=== PATIENT | male | born 1950 | race Caucasian/White ===

== ENCOUNTER → 2020-11-01 09:39 | Outpatient (CLI) | payer MEDICARE, SELFPAY ==
[2020-10-01 10:05] VITALS: BMI 30.2
--- NOTE | 2020-11-01 09:42 | ECHOD_ITS ---
Reason For Study: AV Replacement Procedure This was a 2D Doppler, Color Flow transthoracic echocardiogram. The study was technically difficult. Exam performed in department. Left Ventricle Normal LV size. Left ventricular systolic function is normal. The estimated ejection fraction is 55 %. Post operative septal motion. There is evidence of diastolic dysfunction. No regional wall motion abnormalities noted. Right Ventricle Normal RV size. Normal systolic function. Atria The left atrium is mildly enlarged. The right atrium is mildly enlarged. Aneurysmal atrial septum. Mitral Valve There is no mitral annular calcification. Mild mitral valve prolapse, posterior leaflet. Mild (1+) mitral valve insufficiency. Tricuspid Valve Normal tricuspid valve. Mild tricuspid valve insufficiency. Right ventricular systolic pressure estimated to be 30 mmHg. Aortic Valve Stable appearing mechanical aortic valve apparatus. Trivial transvalvular insufficiency of the aortic valve. Pulmonic Valve The pulmonic valve is not well visualized. Moderate (2+) pulmonic valve insufficiency. Great Vessels Normal sized aortic root. Pericardium/Pleural No pericardial effusion. MMode/2D Measurements & Calculations LVIDd: 4.4 cm IVSd: 1.3 cm LVOT diam: 2.0 cm LVIDs: 2.9 cm LVPWd: 1.2 cm LVOT area: 3.2 cm2 RVDd: 3.8 cm FS: 34.0 % Ao root diam: 3.2 cm LAV(MOD-bp): 92.9 ml LVAd ap4: 26.4 cm2 LAV(MOD-bp) Indexed: 39.9 ml/m2 EDV(MOD-sp4): 66.1 ml LAV(MOD-sp2): 85.6 ml EDV(sp4-el): 67.4 ml LAV(MOD-sp4): 96.6 ml LVAs ap4: 17.1 cm2 ESV(MOD-sp4): 33.6 ml ESV(sp4-el): 34.5 ml EF(MOD-sp4): 49.2 % EF(sp4-el): 48.8 % SV(MOD-sp4): 32.5 ml SV(sp4-el): 32.9 ml LA A4 area: 27.5 cm2 LA dimension(2D): 5.5 cm RA A4 area: 19.2 cm2 Doppler Measurements & Calculations MV E max manpreet: 53.6 cm/sec Lat Peak E' Manpreet: 13.8 cm/sec Med Peak E' Manpreet: 3.7 cm/sec MV A max manpreet: 62.6 cm/sec E/E' lat: 3.9 E/E' med: 14.5 MV E/A: 0.86 Ao V2 max: 187.8 cm/sec LV V1 max: 135.4 cm/sec SV(LVOT): 87.6 ml Ao max P.2 mmHg LV V1 max P.3 mmHg Ao V2 mean: 124.8 cm/sec LV V1 mean P.6 mmHg Ao mean P.3 mmHg LV V1 mean: 88.4 cm/sec Ao V2 VTI: 35.0 cm LV V1 VTI: 27.0 cm WENDI(I,D): 2.5 cm2 WENDI(V,D): 2.3 cm2 PA V2 max: 174.2 cm/sec TR max manpreet: 260.1 cm/sec TR max P.2 mmHg Interpretation Summary The study was technically difficult. Left ventricular systolic function is normal. The estimated ejection fraction is 55 %. Post operative septal motion. The left atrium is mildly enlarged. The right atrium is mildly enlarged. Aneurysmal atrial septum. Mild mitral valve prolapse, posterior leaflet Mild (1+) mitral valve insufficiency. Mild tricuspid valve insufficiency. Stable appearing mechanical aortic valve apparatus. Trivial transvalvular insufficiency of the aortic valve. Moderate (2+) pulmonic valve insufficiency. Right ventricular systolic pressure estimated to be 30 mmHg. There is evidence of diastolic dysfunction. Ordering Physician: Dayton Hernandez Referring Physician: Torito Clark Performed By: Ashley Andres RDCS
== END ==
PROVIDERS: PCP Family Medicine; Referring Provider Internal Medicine Cardiovascular Disease; Visit Provider Internal Medicine Cardiovascular Disease
DX: I25.10 Atherosclerotic heart disease of native coronary artery without angina pectoris (principal); I71.4 Abdominal aortic aneurysm, without rupture; I10 Essential (primary) hypertension; Q87.40 Marfan syndrome, unspecified; I48.0 Paroxysmal atrial fibrillation; Z79.01 Long term (current) use of anticoagulants; Z95.2 Presence of prosthetic heart valve; Z98.890 Other specified postprocedural states; Z86.79 Personal history of other diseases of the circulatory system
CPT/HCPCS: 93306

== ENCOUNTER → 2021-04-25 08:49 | Outpatient (CLI) | payer MEDICARE, SELFPAY ==
[2021-04-11 09:58] VITALS: BMI 30.2
--- NOTE | 2021-04-25 08:56 | AAVD_ITS ---
Reason For Study: AAA Aorta Measurements Aorta Doppler Measurements Proximal aorta measures3.18 x 3.36cm. in cross- Peak systolic flow velocities within the proximal sectional axis. aorta measure 92.6 cm/sec. Proximal aorta measures3.0cm. in longitudinal Peak systolic flow velocities within the mid aorta axis. measure 108 cm/sec. Mid aorta measures2.0 x 2.46cm. in cross-sectionalPeak systolic flow velocities within the distal axis. aorta measure 83.8 cm/sec. Mid aorta measures1.91cm. in longitudinal axis. Distal aorta measures1.62 x 1.64cm. in cross- sectional axis. Distal aorta measures1.59cm. in longitudinal axis. Left Iliac Artery Left iliac artery measures .92 x 1.09 cm. in the cross-sectional axis. Left iliac artery measures 1.04 cm. in the longitudinal axis. Peak systolic velocity in the left iliac artery measures 94.8 cm/sec. Right Iliac Artery Right iliac artery measures 1.04 x 1.26 cm. in the cross-sectional axis. Right iliac artery measures 1.08 cm. in the longitudinal axis. Peak systolic velocity in the right iliac artery measures 86.0 cm/sec. Procedure Aorta IVC Iliac vasculature or bypass grafts [id number]. The exam was diagnostic. Exam performed in department. VL/Abd Aortic/IVC Duplex scan Interpretation Summary 3.36 cm aortic aneurysm. No evidence of aortic iliac stenosis. Ordering Physician: Dayton Hernandez Performed By: Abdulkadir Mcmanus RVT
== END ==
PROVIDERS: PCP Family Medicine; Referring Provider Internal Medicine Cardiovascular Disease; Visit Provider Internal Medicine Cardiovascular Disease
DX: I71.4 Abdominal aortic aneurysm, without rupture (principal)
CPT/HCPCS: 93978

== ENCOUNTER 2021-12-30 10:29 | Outpatient (CLI) | payer MEDICARE, SELFPAY ==
[2021-12-30 12:44] LABS: International Normalized Ratio 3.5; Prothrombin Time (Protime)PT. 34.1 SECONDS (11.7-14.9)
== END 2021-12-30 23:59 | disposition short-term general hospital (02) ==
LOC: LAB.FUTURE 10:31 → BIMLAB 12-31 11:17
PROVIDERS: PCP Family Medicine; Visit Provider Internal Medicine
DX: I74.4 Embolism and thrombosis of arteries of extremities, unspecified (principal)
CPT/HCPCS: 36415; 85610

== ENCOUNTER → 2022-08-12 | Outpatient (CLI) | payer MEDICARE, SELFPAY ==
--- NOTE | 2022-08-12 10:38 | ECHOCS_ITS ---
Reason For Study: VALVE REPLACEMENT EVAL Procedure This was a 2D Doppler, Color Flow transthoracic echocardiogram. The study was technically difficult. Contrast injection was performed. Exam performed in department. Left Ventricle Normal LV size. Left ventricular systolic function is normal. The estimated ejection fraction is 60 %. Post operative septal motion. No evidence for diastolic dysfunction. No regional wall motion abnormalities noted. Right Ventricle Normal RV size. Normal systolic function. Atria The left atrium is mildly enlarged. The right atrium is mildly enlarged. 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 No doppler evidence for ASD. Mitral Valve There is no mitral annular calcification. Moderate mitral valve prolapse. Moderate (2+) mitral valve insufficiency. Tricuspid Valve Normal tricuspid valve. Mild tricuspid valve insufficiency. Right ventricular systolic pressure estimated to be 33 mmHg. Aortic Valve Stable appearing mechanical aortic valve apparatus. Pulmonic Valve The pulmonic valve is not well visualized. Mild (1+) pulmonic valve insufficiency. Great Vessels Normal sized aortic root. Pericardium/Pleural No pericardial effusion. Medication 22 gauge I.V. with prn adaptor inserted into right arm. Diluted definity 2ml given slow IV push to enhance endocardial definition. Performed a rapid injection of agitated mix of 9 cc saline and 1cc air to assess for atrial septal defect. MMode/2D Measurements & Calculations LVIDd: 4.4 cm IVSd: 1.2 cm LVOT diam: 2.0 cm LVIDs: 2.5 cm LVPWd: 1.1 cm FS: 43.0 % LVOT area: 3.1 cm2 Ao root diam: 3.2 cm LAV(MOD-sp4): 111.8 ml LVAd ap4: 36.5 cm2 LVLd ap4: 8.6 cm EDV(MOD-sp4): 122.6 ml EDV(sp4-el): 132.0 ml LVAs ap4: 22.6 cm2 LVLs ap4: 7.6 cm ESV(MOD-sp4): 56.0 ml ESV(sp4-el): 56.8 ml EF(MOD-sp4): 54.4 % EF(sp4-el): 57.0 % SV(MOD-sp4): 66.7 ml SV(sp4-el): 75.2 ml LA A4 area: 30.0 cm2 LA dimension(2D): 5.8 cm RA A4 area: 28.3 cm2 Time Measurements MV dec time: 0.22 sec Doppler Measurements & Calculations MV E max manpreet: 55.0 cm/sec Lat Peak E' Manpreet: 14.8 cm/sec Med Peak E' Manpreet: 7.0 cm/sec MV A max manpreet: 63.3 cm/sec E/E' lat: 3.7 E/E' med: 7.8 MV E/A: 0.87 MV V2 max: 60.3 cm/sec MV dec slope: 253.9 cm/sec2 Ao V2 max: 161.3 cm/sec MV max P.5 mmHg Ao max P.4 mmHg MV V2 mean: 36.6 cm/sec Ao V2 mean: 97.5 cm/sec MV mean P.61 mmHg Ao mean P.7 mmHg MV V2 VTI: 21.4 cm Ao V2 VTI: 32.0 cm MVA(VTI): 2.9 cm2 WENDI(I,D): 2.0 cm2 WENDI(V,D): 2.0 cm2 LV V1 max: 104.4 cm/sec SV(LVOT): 63.1 ml PA V2 max: 114.1 cm/sec LV V1 max P.4 mmHg LV V1 mean P.7 mmHg LV V1 mean: 57.7 cm/sec LV V1 VTI: 20.4 cm TR max manpreet: 275.6 cm/sec TR max P.4 mmHg ECHO/Echo Complete W/ Contrast Interpretation Summary The study was technically difficult. Contrast injection was performed. Left ventricular systolic function is normal. The estimated ejection fraction is 60 %. Post operative septal motion. The left atrium is mildly enlarged. The right atrium is mildly enlarged. 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 Moderate mitral valve prolapse. Moderate (2+) mitral valve insufficiency. Mild tricuspid valve insufficiency. Stable appearing mechanical aortic valve apparatus. Mild (1+) pulmonic valve insufficiency. Right ventricular systolic pressure estimated to be 33 mmHg. No evidence for diastolic dysfunction. Ordering Physician: Dayton Hernandez Referring Physician: Dayton Hernandez Performed By: Angelia Matthews RCS
== END | disposition home or self-care (01) ==
PROVIDERS: PCP Internal Medicine; Referring Provider Internal Medicine Cardiovascular Disease; Visit Provider Internal Medicine Cardiovascular Disease
DX: I71.4 Abdominal aortic aneurysm, without rupture (principal)
CPT/HCPCS: 93306; Q9957; A4216; C8929

== ENCOUNTER → 2022-09-08 | Outpatient (CLI) | payer MEDICARE, SELFPAY ==
--- NOTE | 2022-09-08 08:54 | AAVD_ITS ---
Reason For Study: AAA Aorta Measurements Aorta Doppler Measurements Proximal aorta measures3.31x 3.40cm. in cross- Peak systolic flow velocities within the proximal sectional axis. aorta measure 124.9 cm/sec. Proximal aorta measures3.25cm. in longitudinal Peak systolic flow velocities within the mid aorta axis. measure 101.3 cm/sec. Mid aorta measures1.61 x 1.65cm. in cross- Peak systolic flow velocities within the distal sectional axis. aorta measure 86.8 cm/sec. Mid aorta measures1.81cm. in longitudinal axis. Distal aorta measures1.61 x 1.64cm. in cross- sectional axis. Distal aorta measures1.69cm. in longitudinal axis. Left Iliac Artery Left iliac artery measures 1.20 cm. in the longitudinal axis. Left iliac artery measures 1.19 x 1.19 cm. in the cross-sectional axis. Peak systolic velocity in the left iliac artery measures 81.4 cm/sec. Right Iliac Artery Right iliac artery measures 1.21 cm. in the longitudinal axis. Right iliac artery measures 1.28 x 1.20 cm. in the cross-sectional axis. Peak systolic velocity in the right iliac artery measures 94.1 cm/sec. Procedure Aorta IVC Iliac vasculature or bypass grafts [id number]. The exam was diagnostic. Exam performed in department. VL/Abd Aortic/IVC Duplex scan Interpretation Summary Aortic aneurysm 3.4cm. Ordering Physician: Dayton Hernandez Referring Physician: Zeina Knox M.D. Performed By: Salo Faye RVT
== END | disposition home or self-care (01) ==
LOC: CVS 08:53
PROVIDERS: PCP Internal Medicine; Referring Provider Internal Medicine Cardiovascular Disease; Visit Provider Internal Medicine Cardiovascular Disease
DX: I71.40 Abdominal aortic aneurysm, without rupture, unspecified (principal)
CPT/HCPCS: 93978

== ENCOUNTER → 2023-10-20 | Outpatient (CLI) | payer MEDICARE, SELFPAY ==
--- NOTE | 2023-10-20 08:46 | AAVD_ITS ---
Reason For Study: HX AAA Aorta Measurements Aorta Doppler Measurements Proximal aorta measures3.39 x 3.25cm. in cross- Peak systolic flow velocities within the proximal sectional axis. aorta measure 72.3 cm/sec. Proximal aorta measures3.11cm. in longitudinal Peak systolic flow velocities within the mid aorta axis. measure 83.2 cm/sec. Mid aorta measures2.42 x 2.30cm. in cross- Peak systolic flow velocities within the distal sectional axis. aorta measure 112.2 cm/sec. Mid aorta measures2.37cm. in longitudinal axis. Distal aorta measures1.76 x 1.69cm. in cross- sectional axis. Distal aorta measures1.79cm. in longitudinal axis. Heterogenous plaque noted in distal portion of vessel and at the Iliac bifurcation. Left Iliac Artery Left iliac artery measures 1.36 x 1.30 cm. in the cross-sectional axis. Left iliac artery measures 1.27 cm. in the longitudinal axis. Peak systolic velocity in the left iliac artery measures 85.7 cm/sec. Right Iliac Artery Right iliac artery measures 1.20 x 1.25 cm. in the cross-sectional axis. Right iliac artery measures 1.25 cm. in the longitudinal axis. Peak systolic velocity in the right iliac artery measures 87.8 cm/sec. Procedure Aorta IVC Iliac vasculature or bypass grafts [id number]. The exam was diagnostic. Exam performed in department. VL/Abd Aortic/IVC Duplex scan Interpretation Summary Aorta patent, 3.39 cm aneurysm present Right iliac artery patent, 1.36 cm ectasia present. Left iliac artery patent, 1.25 cm ectasia present Ordering Physician: Sindi Blount Referring Physician: Gavin Verma Performed By: Salo Faye, RVT
== END | disposition home or self-care (01) ==
LOC: CVS 08:45
PROVIDERS: Referring Provider Physician Assistant Medical; Visit Provider Physician Assistant Medical
DX: I10 Essential (primary) hypertension (principal)
CPT/HCPCS: 93978

== ENCOUNTER → 2024-05-23 | Outpatient (CLI) | payer OTHER, SELFPAY ==
--- NOTE | 2024-05-23 10:39 | ECHOCS_ITS ---
Reason For Study: Mitral Valve Prolapse Procedure This was a 2D Doppler, Color Flow transthoracic echocardiogram. The study was technically difficult. Contrast injection was performed. Exam performed in department. Left Ventricle Normal size and thickness. The left ventricular ejection fraction is 65 %. Normal diastology for age. Inferior wall appears hypokinetic. Consider adhesions to the pericardium. Right Ventricle Normal right ventricle. Atria There is moderate biatrial dilatation. 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 Mitral Valve Posterior mitral valve leaflet prolapse. Moderate eccentric anterior mitral valve regurgitation. Tricuspid Valve Mild tricuspid valve insufficiency. Normal pulmonary artery pressure. Aortic Valve Mechanical aortic valve appears to be functioning normally. Pulmonic Valve Pulmonic valve appears to be prolapsing. Moderate to severe pulmonic valve regurgitation. Moderate to severe pulmonary artery dilatation. Great Vessels Normal sized aortic root. Pericardium/Pleural No pericardial effusion. Medication 22 gauge I.V. with prn adaptor inserted into right arm. Diluted definity 2ml given slow IV push to enhance endocardial definition. MMode/2D Measurements & Calculations LVIDd: 5.0 cm IVSd: 1.0 cm LVOT diam: 2.0 cm LVIDs: 3.3 cm LVPWd: 0.95 cm FS: 32.9 % LVOT area: 3.0 cm2 Ao root diam: 3.3 cm LAV(MOD-bp): 80.9 ml LVAd ap4: 43.5 cm2 LA dimension: 4.6 cm LAV(MOD-bp) Indexed: 34.5 ml/m2 LVLd ap4: 9.4 cm LAV(MOD-sp2): 72.4 ml EDV(MOD-sp4): 162.7 ml LAV(MOD-sp4): 80.2 ml EDV(sp4-el): 171.6 ml LVAs ap4: 24.5 cm2 LVLs ap4: 7.1 cm ESV(MOD-sp4): 68.0 ml ESV(sp4-el): 72.0 ml EF(MOD-sp4): 58.2 % EF(sp4-el): 58.0 % SV(MOD-sp4): 94.7 ml SV(sp4-el): 99.6 ml LA A4 area: 24.4 cm2 RA A4 area: 27.0 cm2 TAPSE: 2.6 cm Time Measurements MV dec time: 0.24 sec Doppler Measurements & Calculations MV E max manpreet: 64.6 cm/sec Lat Peak E' Manpreet: 13.1 cm/sec Med Peak E' Manpreet: 8.0 cm/sec MV A max manpreet: 64.0 cm/sec E/E' lat: 4.9 E/E' med: 8.1 MV E/A: 1.0 MV V2 max: 63.1 cm/sec MV P1/2t max manpreet: 62.8 cm/sec Ao V2 max: 156.5 cm/sec MV max P.6 mmHg MV P1/2t: 74.0 msec Ao max P.8 mmHg MV V2 mean: 34.3 cm/sec MV dec slope: 248.6 cm/sec2 Ao V2 mean: 96.1 cm/sec MV mean P.57 mmHg MVA(P1/2t): 3.0 cm2 Ao mean P.4 mmHg MV V2 VTI: 22.7 cm Ao V2 VTI: 27.8 cm MVA(VTI): 2.8 cm2 AV (velocity ratio): 0.76 WENDI(I,D): 2.3 cm2 WENDI(V,D): 2.0 cm2 LV V1 max: 106.5 cm/sec SV(LVOT): 63.7 ml PA V2 max: 140.4 cm/sec LV V1 max P.5 mmHg PA max PG (full): 6.1 mmHg LV V1 mean P.0 mmHg PA V2 mean: 78.8 cm/sec LV V1 mean: 63.7 cm/sec PA mean PG (full): 2.2 mmHg LV V1 VTI: 21.2 cm TR max manpreet: 275.3 cm/sec PI dec slope: 103.4 cm/sec2 TR max P.3 mmHg ECHO/Echo Complete W/ Contrast Interpretation Summary The left ventricular ejection fraction is 65 %. Inferior wall appears hypokinetic. Consider adhesions to the pericardium. Posterior mitral valve leaflet prolapse. Moderate eccentric anterior mitral marquita ve regurgitation. Mild tricuspid valve insufficiency. Mechanical aortic valve appears to be functioning normally. Pulmonic valve appears to be prolapsing. Moderate to severe pulmonic valve regu rgitation. Moderate to severe pulmonary artery dilatation. Recommend cardiac MRI for further evaluation of mitral valve regurgitation, pul mode valve regurgitation, pulmonary artery and for possible adherent pericardium to the in ferior left ventricular wall. Ordering Physician: Sindi Blount Referring Physician: Wang Gaytan Performed By: Wade Dykes RCS
== END | disposition home or self-care (01) ==
LOC: CVS 10:36
PROVIDERS: Referring Provider Chiropractor; Visit Provider Chiropractor
DX: I25.9 Chronic ischemic heart disease, unspecified (principal); I34.1 Nonrheumatic mitral (valve) prolapse
CPT/HCPCS: 93306; Q9957; A4216; C8929

== ENCOUNTER → 2024-07-06 | Outpatient (CLI) | payer OTHER, SELFPAY ==
--- NOTE | 2024-07-06 | BON_PTH ---
PATIENT: LORENA DU [facility] U#:[id number] AGE/SX: 74/M ROOM: RE07/06/[address]: Dr. Wang Lange MD : 1950 BED: DIS: 07/06/2024 SPEC #: [id number] RECD: 07/07/24 08:37 STATUS: GERALDINE REQ #: [id number] MATTHEW: 07/06/24 00:[address]: Wang Lange DEPT: SURGICAL PATHOLOGY RECD BY: Jonathan Salcedo ENTERED: 07/07/24 08:38 SP TYPE: Bone OTHR DR: Dr. Gavin Verma, [facility] Tissues: Vertebra, NOS Procedures: Decalcification bone/plaque Surgery Specimen Level IV HEADER OPERATION: Kyphoplasty at L3 with fluoroscopy PRE-OP DIAGNOSIS: Age-related osteoporosis with current pathological fracture, vertebra, initial encounter for fracture TISSUE SUBMITTED: Vertebral body L3 MICROSCOPIC DIAGNOSIS Vertebral body L3, bone, core biopsy: A piece of bone, negative for malignancy. See comment. / 07/08/2024 COMMENT Trilineage hematopoiesis is noted. Clinical correlation and appropriate follow up are necessary. MICROSCOPIC DESCRIPTION Slides are reviewed. GROSS DESCRIPTION Received in fixative is one container labeled with the patient's name and designated L3 vertebrae. The specimen consists of a piece of bone with blood clots measuring in aggregate 0.3 x 0.2 x 0.1cm. The entire specimen is submitted in one cassette after decalcification. / 07/08/2024 TC:5 CPT:[id number]
== END | disposition home or self-care (01) ==
LOC: LABSPEC 15:29
PROVIDERS: Referring Provider Anesthesiology Pain Medicine; Visit Provider Anesthesiology Pain Medicine
DX: M80.08XA Age-related osteoporosis with current pathological fracture, vertebra(e), initial encounter for fracture (principal)
CPT/HCPCS: 88305; 88311

== ENCOUNTER → 2024-10-24 | Outpatient (CLI) | payer MEDICARE, SELFPAY ==
--- NOTE | 2024-10-24 10:01 | VDLE_ITS ---
Reason For Study: Swelling RLE RIGHT LEFT GSV is normal. CFV is compressible, spontaneous, phasic, CFV is compressible, phasic, and INCOMPETENT competent, and demonstrates normal for greater than 1.0 second. augmentation. FV is compressible, phasic, and INCOMPETENT for greater than 1.0 second. POP V is compressible, phasic, and INCOMPETENT for greater than 1.0 second. T/P Trunk is compressible. PTV is compressible. RT PerV is compressible. Rt GastrocV is non dilated and partially compressible with bright intraluminal echoes consistent with chronic DVT. Procedure This is a venous duplex using B-mode, color flow and spectral Doppler. Exam performed in department. A preliminary report was called and/or faxed to Dr. Quigley. VL/Venous Duplex US, Unilateral Interpretation Summary Chronic deep vein thrombosis is noted in the right gastrocnemius vein. Positive for reflux in the right common femoral vein, femoral vein, popliteal v ein Ordering Physician: Ant Quigley Referring Physician: Gavin Verma Performed By: Estrellita Sosa, LANCE, RVT
== END | disposition home or self-care (01) ==
LOC: CVS 10:00
PROVIDERS: Referring Provider Internal Medicine Cardiovascular Disease; Visit Provider Internal Medicine Cardiovascular Disease
DX: R60.0 Localized edema (principal); Z86.718 Personal history of other venous thrombosis and embolism
CPT/HCPCS: 93971

== ENCOUNTER → 2024-10-31 | Outpatient (CLI) | payer MEDICARE, SELFPAY ==
--- NOTE | 2024-10-31 08:03 | AAVD_ITS ---
Reason For Study: AAA Aorta Measurements Aorta Doppler Measurements Proximal aorta measures3.25cm x 3.04cm. in cross- Peak systolic flow velocities within the proximal sectional axis. aorta measure 85 cm/sec. Proximal aorta measures3.17cm. in longitudinal Peak systolic flow velocities within the mid aorta axis. measure 94 cm/sec. Mid aorta measures2.19cm x 2.00cm. in cross- Peak systolic flow velocities within the distal sectional axis. aorta measure 89 cm/sec. Mid aorta measures2.04cm. in longitudinal axis. Distal aorta measures1.51cm x 1.59cm. in cross- sectional axis. Distal aorta measures1.85cm. in longitudinal axis. Left Iliac Artery Left iliac artery measures 1.39cm x 1.41 cm. in the cross-sectional axis. Left iliac artery measures 1.29 cm. in the longitudinal axis. Peak systolic velocity in the left iliac artery measures 80 cm/sec. Right Iliac Artery Right iliac artery measures 1.28cm x 1.29 cm. in the cross-sectional axis. Right iliac artery measures 1.29 cm. in the longitudinal axis. Peak systolic velocity in the right iliac artery measures 86 cm/sec. Procedure Aorta IVC Iliac vasculature or bypass grafts [id number]. Exam performed in department. VL/Abd Aortic/IVC Duplex scan Interpretation Summary Aorta patent, 3.25 cm aneurysm present Right iliac artery patent, 1.29 cm ectasia present Left iliac artery patent, 1.41 cm ectasia present Ordering Physician: Ant Quigley Referring Physician: Gavin Verma Performed By: Estrellita Sosa, LANCE, RVT
== END | disposition home or self-care (01) ==
LOC: CVS 08:02
PROVIDERS: Referring Provider Internal Medicine Cardiovascular Disease; Visit Provider Internal Medicine Cardiovascular Disease
DX: I10 Essential (primary) hypertension (principal)
CPT/HCPCS: 93978

== ENCOUNTER → 2024-12-13 | Outpatient (CLI) | payer MEDICARE, SELFPAY ==
--- NOTE | 2024-12-13 12:53 | VDLE_ITS ---
Reason For Study: RLE Swelling RIGHT LEFT CFV is compressible, phasic, and INCOMPETENT CFV is compressible, phasic, and INCOMPETENT for greater than 1.0 second. for greater than 1.0 second. FV is compressible, phasic, and INCOMPETENT for greater than 1.0 second. POP V is compressible, phasic, and INCOMPETENT for greater than 1.0 second. T/P Trunk is compressible. PTV is compressible. RT PerV is compressible. Rt GastrocV is non dilated and partially compressible with bright intraluminal echoes consistent with chronic DVT. SFJ is competent and measures 0.71 cm. GSV proximal thigh measures 0.48 x 0.48 cm. GSV at knee measures 0.42 x 0.45 cm. GSV above knee is competent. GSV below knee is INCOMPETENT for greater than 0.5 seconds. SSV at junction is competent and measures 0.22 x 0.22 cm. SSV mid calf is competent and measures 0.19 x 0.23 cm. Procedure This is a venous duplex using B-mode, color flow and spectral Doppler. Exam performed in department. The exam was diagnostic. VL/Venous Duplex US, Unilateral Interpretation Summary Chronic deep vein thrombosis is noted in the right gastrocnemius vein. The right great saphenous vein appears patent and compressible segmentally. Positive for reflux in the right common femoral vein, femoral vein, popliteal v ein, great saphenous vein below the knee. Ordering Physician: Yessi Freitas Referring Physician: Gavin Verma Performed By: Salo Faye RVT
--- NOTE | 2024-12-13 13:10 | CT_ITS ---
INDICATION: s/p ascending aortic aneurysm repair EXAMINATION: CTA CHEST, ABDOMEN AND PELVIS WITH CONTRAST - TECHNIQUE: A CTA of the chest, abdomen, and pelvis is obtained with sagittal and coronal reconstructed MIP views. Three-dimensional surface rendered sequence of the thoracic and abdominal aorta was obtained. A radiation dose optimization technique was used for this scan. mL of Isovue-[id number]. Oral contrast: None. COMPARISON: None. FINDINGS: CT CHEST: THORACIC AORTA: No atheromatous disease, no aneurysmal changes or dissection. ABDOMINAL AORTA: No aneurysm or dissection. No significant atheromatous disease. The iliac arteries are unremarkable. LUNGS: Mild degree of linear atelectasis at the lung bases. MEDIASTINUM: The thyroid gland is normal. No mediastinal or hilar adenopathy. HEART: Prior midline sternotomy and repair of the ascending thoracic aorta. Coronary artery calcification. CT ABDOMEN AND PELVIS: LIVER: The liver enhances homogeneously. No masses identified. GALLBLADDER: Multiple small gallstones. SPLEEN: Normal. PANCREAS: Diffuse atrophy of the pancreas. ADRENAL GLANDS: Normal. KIDNEYS AND URETERS: The kidneys both enhance appropriately. There are normal size and shape. No hydronephrosis or nephrolithiasis. No renal masses or cysts. STOMACH: Normal. SMALL BOWEL: No abnormal distention of the small bowel. MESENTERY: No mesenteric inflammation. No ascites. COLON: Diffuse sigmoid diverticulosis. The colon otherwise is normal. There is a large fatty ileocecal valve. APPENDIX: The appendix is visualized and normal. IVC: A filter is seen within the inferior vena cava. RETROPERITONEUM: No retroperitoneal lymphadenopathy. PELVIC STRUCTURES: Normal bladder. Prostatic enlargement. SOFT TISSUES ABDOMEN: Small left inguinal hernia containing fat. SOFT TISSUE CHEST: The extrathoracic soft tissues are normal. BONES: Prior vertebroplasty of the L3 vertebrae. Diffuse degenerative changes of the thoracic and lumbar spine. CT/CTA Chst, Abd, Pel W and/or WO IMPRESSION: Status post repair of the ascending aortic aneurysm No acute abnormality is seen. Electronically Signed: Howard Harmon MD at 13:43 EST ,
== END | disposition home or self-care (01) ==
LOC: CT 12:52
PROVIDERS: Referring Provider Physician Assistant; Visit Provider Physician Assistant
DX: I71.43 Infrarenal abdominal aortic aneurysm, without rupture (principal); Z95.2 Presence of prosthetic heart valve; Z86.79 Personal history of other diseases of the circulatory system; Z98.890 Other specified postprocedural states; Q87.40 Marfan syndrome, unspecified; I87.2 Venous insufficiency (chronic) (peripheral); M79.604 Pain in right leg; M79.89 Other specified soft tissue disorders
CPT/HCPCS: 71275; 74174; 93971; Q9967

== ENCOUNTER → 2025-02-07 | Outpatient (CLI) | payer MEDICARE, SELFPAY ==
[2025-02-07 11:21] LABS: Mean Corp Hgb Conc 33.3 g/dL (32-36); Mean Corpuscular Volume 92.9 fL (80-94); Platelet Count 245 K/mm3 (150-450); RBC Distribution Width CV 13.2 % (11.6-14.6); RBC Distribution Width SD 44.9 fl (35.1-43.9); Red Blood Count 4.52 M/mm3 (4.6-6.2); White Blood Count 7.4 K/mm3 (4.4-11.0)
== END | disposition home or self-care (01) ==
LOC: LAB 10:34
PROVIDERS: Referring Provider Internal Medicine Cardiovascular Disease; Visit Provider Internal Medicine Cardiovascular Disease
DX: Z79.01 Long term (current) use of anticoagulants (principal)
CPT/HCPCS: 36415; 85027

== ENCOUNTER 2025-07-07 13:41 | Emergency (ER) | payer MEDICARE, SELFPAY ==
[2025-07-07 13:42] VITALS: BP 130/59; PULSE 60; RESP 16; TEMP 36.8; O2SAT 96
[2025-07-07 13:43] VITALS: BMI 28.4
--- NOTE | 2025-07-07 14:12 | ED.VIS.BACK ---
HPI History of Present Illness Chief Complaint: Back Informant: patient Onset/Context/Timing Onset: Weeks Timing: Continuous Quality: Sharp Current Severity: Moderate Maximum Severity: Moderate Relieved by: Nothing Associated Symptoms Associated Symptoms: Urinary Incontinence (Occasionally which she has had for years.) Narrative Narrative: 75-year-old male treated for chronic back pain. Has never had back surgery. Also has a history of A-fib for which he is on Coumadin. Also has a history of mechanical aortic valve. Patient has chronic low back pain on Thursday Dr. Leon did a caudal injection. His pain is not getting any better. He has had intermittent incontinence but he had that before he ever got this injection. He has a history of incontinence. says he does not tell people that because he is embarrassed. She got a recent injection told Dr. Carbajal his symptoms and wanted him seen in the emergency department and wanted an MRI done. Prior similar symptoms: Yes Recent Illness/Hospitalization: No [facility]SH [facility] Medical History Mild pulmonic regurgitation and RV dilation by prior echocardiogram Nonrheumatic pulmonary valve insufficiency [facility] current use of anticoagulant Nonrheumatic mitral (valve) prolapse History of cardioversion (~03/12/10) History of left heart catheterization (LHC) CVA (cerebral vascular accident) Stenosis of right carotid artery Paroxysmal atrial fibrillation Marfan's disease Essential hypertension Subdural hematoma (~06/23/14) History of DVT (deep vein thrombosis) Abdominal aortic aneurysm without rupture Home Medications ?Medication ?Instructions ?Recorded ?Last Taken ?Type lactobacillus combination no.9 4 4,000 mmu cells PO DAILY 12/30/21 Unknown History billion cell capsule (Adult 50 Plus Probiotic) multivitamin (Daily Multi-Vitamin 2 tab PO DAILY 12/30/21 Unknown History tablet) trazodone 50 mg tablet 50 mg PO QHS #90 tabs 12/30/21 Unknown Rx metoprolol succinate 25 mg 25 mg PO QDAY 10/05/24 Unknown History tablet,extended release 24 hr warfarin 5 mg tablet 6 mg PO DAILY 11/16/24 Unknown History oxycodone 5 mg capsule 5 mg PO Q6H PRN pain 5 days #14 07/07/25 Unknown Rx caps Allergy/AdvReac Type Severity Reaction Status Date / Time enoxaparin (From Lovenox) Allergy Severe Throat Verified 07/07/25 13:44 closed, itching, swelling Family History Mother Hypertension Cancer Sister Cancer Grandfather Diabetes Sister Cancer Surgical History History of right and left heart catheterization (LHC) (~11/05/10) Cataract extraction status of right eye History of hernia repair History of repair of rotator cuff Castillo filter in place (~2009) History of aortic aneurysm repair (~11/13/10) History of mechanical aortic valve replacement (~11/13/10) Social History Smoking Status: Never smoker Tobacco: How many years used: 4 alcohol intake: never substance use type: does not use caffeine: Yes Type: coffee Number of servings: 3 and tea Number of servings: 2 what type of physical activity do you participate in: none ROS ROS ED ROS Narrative Low back pain. Constitutional Constitutional ED: Denies chills or fever(s) Eyes Eyes: Denies blurry vision ENT ENT ED: Denies ear pain Cardiovascular Cardiovascular: Denies chest pain Respiratory/Chest Respiratory/Chest: Denies dyspnea Gastrointestinal Gastrointestinal: Denies abdominal pain Genitourinary Genitourinary ED: Denies dysuria or hematuria Musculoskeletal Musculoskeletal: Reports back pain; Denies arthralgias Integumentary Denies abscess or Abrasions Neurologic Neurologic: Denies headache(s) Psychiatric Psychiatric: Denies anxiety Endocrine Endocrinology: Denies cold intolerance Hematologic/Lymphatic Hematologic/Lymphatic: Reports easy bleeding, easy bruising and other Details: On Coumadin. Allergic/Immunologic Allergic/Immunologic ED: Denies mouth swelling, tongue swelling or urticaria EXAM Physical Exam Narrative Exam Narrative: 76-year-old male vital signs stable afebrile. Sitting upright in bed. No acute distress. and I believe son at bedside. H EENT exam pupils round and reactive light. Mytrex membranes. Neck nontender. Lungs clear to auscultation bilaterally. Heart regular rhythm aortic valve click. Chest wall and ribs nontender. Abdomen soft nontender. No peritoneal signs. Moving all 4 extremities. He has chronic weakness in his right leg due to prior stroke. Has trace edema around his right ankle. Left lower extremity and right lower extremity both of dorsi and plantarflexion. No cauda equina. He has normal medial thigh sensation. He can lift either leg off the bed. Back exam is mild reproducible pain over the lumbar spine. There is no ecchymosis or bruising. No discoloration or warmth. No prior back surgeries. Neurologically he is awake and alert. Answer questions following commands. No cauda equina. Dorsi plantarflexion intact. Bilateral freight brakeman strength. He can lift either leg off the bed the right slightly weaker than the left because of her prior stroke. Const Vital Signs: 07/07/25 13:42 07/07/25 15:41 Temperature 98.2 F Temperature Source Oral Pulse Rate 60 63 Respiratory Rate 16 16 Blood Pressure 130/59 H Blood Pressure Mean 82 Pulse Ox 96 Oxygen Delivery Method Room Air Positive well nourished and well developed; Negative for cachectic, contractures or unkempt General Appearance ED: well developed and NAD; Negative for unkempt, cachectic or contractures Nutritional Appearance: Negative for cachectic HEENT Reports moist mucous membranes Negative for trauma or tenderness Eyes PERRL and EOMs intact bilaterally Neck no lymphadenopathy, supple and no JVD Resp normal respiratory effort and clear to auscultation bilaterally Cardio regular rate, regular rhythm, S1 normal heart sound and S2 normal heart sound Cardio Narrative: Aortic valve click. GI normal to inspection, nondistended, normoactive bowel sounds, soft to palpation, non-tender, non-distended and no masses Palpation: Negative for tender, guarding or rebound tenderness present Back/Spine normal to inspection; Negative for no thoracic nor lumbar tenderness Back/Spine Narrative: Lumbar tenderness. Extremity Negative for normal to inspection or no clubbing, cyanosis or edema Extremity Narrative: Ankle edema right ankle. Neuro oriented x3 Neuro Narrative: Right lower extremity weaker than the left. Prior stroke. Sensorium / Orientation: alert; Negative for confused, lethargic or stuporous Motor Exam: strength abnormal Psych mental status grossly normal Appearance: Negative for unkempt Skin no rashes or lesions noted and no wounds MDM MDM MDM Narrative Medical decision making narrative: 75-year-old male with acute on chronic low back pain has a history of back problems. No prior back surgery. He is anticoagulated due to A-fib and mechanical aortic valve. Has had recent injections by his pain management doctor Dr. Leon who sent him in for evaluation and MRI. Repeat exam patient is doing well at 4:40 PM. I can lower extremities have normal dorsi and plantarflexion. He has weakness bilaterally more so on the right he had a prior stroke but there is again no signs of cauda equina. He has medial thigh sensation. I went over the MRI with both he and his I believe his son in the room. I also spoke to the radiologist who read it who does not believe there is an acute discitis. There is no signs of cauda equina. Currently we do not have spine global compensation analyst today. Patient is going to follow-up with Dr. Bar of this line next week. I have a call out to his pain management doctor who I do not know if they are available today. Patient be written for a few more oxycodone at home for pain they recently started him on a Medrol Dosepak and he will follow-up both with pain management and orthopedic spine. They know to return if he gets worse. They are comfortable with the plan. He has been offered but did not need anything for pain while he was here. I spoke to the radiologist. We specifically went over the MRI read. He does not believe that he has any signs of acute discitis or acute infection. It could be exactly ruled out because it was not with contrast. But given the patient's history and lack of other findings he does not think there is an acute discitis. There is no cauda equina. I also spoke to his pain management doctor Dr. Leon. He will ensure close follow-up. And the patient will follow-up with orthopedic spine who was not available today. History & Record Review Discussion w/independent historian: Patient Additional record(s) reviewed:: Prior inpatient record, Prior outpatient record, Prior ED visit and Prior labs Radiography Diagnostic Testing: Clinical Impression(s) from Imaging Studies Lumbar Spine MRI 07/07/25 14:55 IMPRESSION: 1. Multilevel degenerative disc disease outlined above with exit foraminal narrowing at L4/5 and L5/S1. 2. Vertebral augmentation L3 vertebral body for grade 2 compression. No edema at this level. 3. Fluid signal in the disc space at L1/2. No paraspinal mass or phlegmon or abscess seen. No adjacent bone marrow edema. Discitis is equivocal. 3. Some fluid signal and bone marrow edema at the L4/5 disc space. No phlegmon or abscess seen. Consider discitis. 5. Small nodule is seen associated with the traversing nerve root just below the cauda equina at the L1 level on the right side. No other nodules or dural thickening seen. Non-specific. Contrast was not provided. In the appropriate scenario this could represent neoplasia; is there a history of malignancy? Reading Location: [facility] Discharge Plan Triage Chief Complaint: Back ED Provider: Ubaldo Fontanez Dx/Rx/DC Orders Clinical Impression: Low back pain, Chronic anticoagulation, Degenerative disc disease, Compression fx, lumbar spine, History of atrial fibrillation Instructions: ED Back Pain (Acute or Chronic) Prescriptions: New oxycodone 5 mg capsule 5 mg PO Q6H PRN (Reason: pain) 5 Days Qty: 14 0RF No Action multivitamin [Daily Multi-Vitamin] Tablet 2 tab PO DAILY Adult 50 Plus Probiotic 4 billion cell capsule 4,000 mmu cells PO DAILY Rx Instructions: administer with a meal trazodone 50 mg tablet 50 mg PO QHS Qty: 90 1RF metoprolol succinate 25 mg tablet extended release 24 hr 25 mg PO QDAY warfarin 5 mg tablet 6 mg PO DAILY Protocol: Dose Management Condition: Thursday Dose/Route: 5 mg Instruction: 1 x 5 mg tablet Condition: Thursday Dose/Route: 5 mg Instruction: 1 x 5 mg tablet Condition: Thursday Dose/Route: 5 mg Instruction: 1 x 5 mg tablet Condition: Thursday Dose/Route: 5 mg Instruction: 1 x 5 mg tablet Condition: Dose/Route: 5 mg Instruction: 1 x 5 mg tablet Condition: Thursday Dose/Route: 5 mg Instruction: 1 x 5 mg tablet Condition: Thursday Dose/Route: 5 mg Instruction: 1 x 5 mg tablet Protocol Text: Adjustment Start Date: Thursday09/26/24 INR Value: 2.1 INR Date: 09/23/24 Recheck Date: 10/26/24 Primary Care Provider: Gavin Verma Referrals: Walt Bar MD [Med Staff - Active Staff] - As soon as possible (Call their office Thursday morning after 8 AM and set up an appointment to be seen soon as possible. Make sure they know you have already had an MRI done and they can see that.) Gavin Verma, [Primary Care Provider] - Activity Restrictions/Additional Instructions: I spoke to Dr. Leon. Oxycodone for pain. Continue your Medrol Dosepak. Call and follow-up with the orthopedic housing development specialist Dr. Bar. Call their office on Thursday to get an appointment to be seen as soon as possible. Hopefully you will start feeling better if you are getting worse just return to the emergency department. Print Language: Georgian Disposition Disposition: Home, Self Care
--- NOTE | 2025-07-07 14:55 | MRI_ITS ---
PROCEDURE: SPINE LUMBAR (ROUTINE) 07/07/2025 REASON FOR EXAM: LOW BACK PAIN. RECENT INJECTION. ANTICOAGULATION TECHNIQUE: SPINE LUMBAR (ROUTINE) COMPARISON: None FINDINGS: Vertebrae: Bone marrow edema at the opposing endplates of L4 and L5. Alignment: Mildly straightened. Conus Medullaris: Terminates at L1. Just caudal to the conus medullaris on the right there is a small nodule associated with the nerve root only seen on the sagittal images. Slice select gradient passes over this lesion in the axial plane. The nodule is homogeneous and measures 6 mm. Contrast was not provided to assess for enhancement. No other nodules are seen. No dural enhancement or thickening. T11-12: Moderate loss of disc height. Mild endplate spurring. Mild facet hypertrophy. T12-L1: Minimal diffuse disc bulge. L1-2: Mild depression superior endplate of L2. Fluid signal in the disc space anteriorly and at the midportion. Low signal posteriorly. No paraspinal phlegmon. No endplate edema. L2-3: Grade 2 compression fracture of L3 status post vertebral augmentation. [id number] loss of disc height with endplate irregularity. Mild thickening of ligamentum flavum. L3-4: Moderate loss of disc height. Moderate thickening of ligamentum flavum. Mild facet hypertrophy. L4-5: Mild endplate irregularity, endplate edema and some heterogeneous fluid signal within the disc space; no phlegmon is seen. [id number] thickening of ligamentum flavum. Moderate facet hypertrophy. Bilateral exit foraminal narrowing. Correlate with L4 radiculopathy. L5-S1: Mild, diffuse disc bulge. Mild bilateral facet hypertrophy. [id number] exit foraminal narrowing. Correlate with L5 radiculopathy. Sacrum: Unremarkable MRI/Spine Lumbar (Routine) IMPRESSION: 1. Multilevel degenerative disc disease outlined above with exit foraminal karen rowing at L4/5 and L5/S1. 2. Vertebral augmentation L3 vertebral body for grade 2 compression. No edema at this level. 3. Fluid signal in the disc space at L1/2. No paraspinal mass or phlegmon or abscess seen. No adjacent bone marrow edema. Discitis is equivocal. 3. Some fluid signal and bone marrow edema at the L4/5 disc space. No phlegmo n or abscess seen. Consider discitis. 5. Small nodule is seen associated with the traversing nerve root just below t he cauda equina at the L1 level on the right side. No other nodules or dural thickening seen. Non-specific. Contrast was not pro vided. In the appropriate scenario this could represent neoplasia; is there a history of malignancy? Reading Location: [id number]
[2025-07-07 15:41] VITALS: PULSE 63; RESP 16
[2025-07-07 17:00] VITALS: PULSE 58; RESP 14; O2SAT 96
[2025-07-07 17:04] VITALS: BP 130/59; PULSE 63; RESP 16; TEMP 36.8; O2SAT 96
== END 2025-07-07 17:08 | disposition home or self-care (01) ==
PROVIDERS: Emergency Provider Emergency Medicine; Visit Provider Emergency Medicine
DX: M51.360 Other intervertebral disc degeneration, lumbar region with discogenic back pain only (principal); M48.56XA Collapsed vertebra, not elsewhere classified, lumbar region, initial encounter for fracture; I69.351 Hemiplegia and hemiparesis following cerebral infarction affecting right dominant side; I48.91 Unspecified atrial fibrillation; Z79.01 Long term (current) use of anticoagulants; Z86.718 Personal history of other venous thrombosis and embolism
CPT/HCPCS: 72148; 99282